=== PATIENT | male | born 1965 | race Caucasian/White ===

== ENCOUNTER 2020-07-18 11:05 | Inpatient (IN) | payer OTHER ==
[~2020-07-18] VITALS: Ht 188 cm; Wt 129.7 kg
[2020-07-18] MEDS ORDERED: SODIUM CHLORIDE 0.9% 1,000 ML IVB ONE (12:45)
[2020-07-18] MEDS ORDERED: SODIUM CHLORIDE 0.9% 1,000 ML IV ONE (12:45)
[2020-07-18] MEDS ORDERED: MECLIZINE HCL 25 MG TAB PO ONE (12:45)
[2020-07-18 14:25] LABS: Hemoglobin 7.7 g/dL (13.5-17.5); White Blood Cell 6.9 10^3/uL (4.4-10.8)
[2020-07-18 14:28] LABS: Basophils # (auto) 0.1 10 ^3/uL (0-0.2); Basophils % (auto) 1.2 % (0.0-2.0); Eosinophils # (auto) 0 10 ^3/uL (0-0.8); Eosinophils % (auto) 0.7 % (0.0-7.0); Hematocrit 23.8 % (41.0-53.0); Lymphocytes % (auto) 14.8 % (10.0-50.0); Mean Corpuscular Hemoglobin 29.4 pg (28.0-32.0); Mean Corpuscular Hgb Conc. 32.5 g/dL (32.0-36.0); Mean Corpuscular Volume 90.4 fL (80.0-100.0); Monocytes # (auto) 0.7 10 ^3/uL (0-1.3); Monocytes % (auto) 9.5 % (0.0-12.0); Neutrophils # (auto) 5.1 10 ^3/uL (1.6-8.6); Neutrophils % (auto) 73.8 % (37.0-80.0); Platelet Count (auto) 261 10^3/uL (140-450); Red Blood Cells 2.63 10^6/uL (4.5-5.90)
[2020-07-18 14:34] LABS: Albumin 2.6 g/dL (3.4-5.0); Calcium 7.9 mg/dL (8.5-10.1); Magnesium 2.1 mg/dL (1.6-2.6)
[2020-07-18 14:37] LABS: INR 1.05 (0.9-1.15); Partial Thromboplastin Time 24.8 sec (23.0-31.2)
[2020-07-18 14:52] LABS: BUN/Creatinine Ratio 43.2; Bilirubin, Total 0.3 mg/dL (0.2-1.0); Total Protein 5.3 g/dL (6.4-8.2)
[2020-07-18] MEDS ORDERED: IOPAMIDOL 76 % (ISOVUE-370) 100ML BTL IV ONE (16:52)
[2020-07-18] MEDS ORDERED: NITROGLYCERIN 0.4 MG SL TAB SL PRN (19:45)
[2020-07-18] MEDS ORDERED: MORPHINE SULF INJ 2 MG/ML SYRINGE 1ML IV PRN ×2 (19:45)
[2020-07-18] MEDS ORDERED: ONDANSETRON HCL 4 MG/2 ML VIAL IV PRN (19:45)
[2020-07-18] MEDS: SODIUM CHLORIDE 0.9% 1,000 ML IV SCH (20:10)
[2020-07-18] MEDS: SUCRALFATE 1 GM/10 ML ORAL SUSP PO SCH (21:10)
[2020-07-18] MEDS: PANTOPRAZOLE 40 MG/10 ML VIAL INJ IV SCH (21:10)
[2020-07-18 23:57] VITALS: BP 104/50
[2020-07-19] VITALS (9 sets, daily range): BP systolic 84–124; BP diastolic 41–63
[2020-07-19 00:07] LABS: Hematocrit 22.1 % (41.0-53.0)
[2020-07-19] MEDS: SODIUM CHLORIDE 0.9% 1,000 ML IV SCH ×3 (03:45→20:01)
[2020-07-19] MEDS: SUCRALFATE 1 GM/10 ML ORAL SUSP PO SCH ×4 (06:09→21:41)
[2020-07-19] MEDS: PANTOPRAZOLE 40 MG/10 ML VIAL INJ IV SCH ×2 (09:26→21:41)
[2020-07-19 11:27] LABS: Hemoglobin 7.7 g/dL (13.5-17.5)
[2020-07-19 11:29] LABS: Hematocrit 23.5 % (41.0-53.0)
[2020-07-19] MEDS: Ensure HIGH Protein Chocolate 8oz Bottle PO SCH ×2 (12:20→17:42)
[2020-07-19] MEDS ORDERED: METOCLOPRAMIDE HCL 5MG/ml INJ 2ml VIAL IV ONE (13:45)
[2020-07-19] MEDS ORDERED: LIDOCAINE VISCOUS 2% 15ML UD ONE (14:43)
[2020-07-19] MEDS ORDERED: SODIUM CHLORIDE LOCK 10 ML ONE (14:43)
[2020-07-19] MEDS ORDERED: fentaNYL CITRATE 100 MCG/2 ML VL ONE (14:44)
[2020-07-19] MEDS ORDERED: diphenhdrAMINE HCL 50 MG/1 ML VL ONE (14:44)
[2020-07-19] MEDS: MIDAZOLAM HCL 5 MG/ML-1ML VIAL ONE ×2 (14:57→15:00)
[2020-07-19 19:41] LABS: Hematocrit 23.1 % (41.0-53.0); Hemoglobin 7.6 g/dL (13.5-17.5)
[2020-07-19] MEDS ORDERED: ATORVASTATIN 20 MG TAB PO SCH (22:00)
[2020-07-20 01:45] VITALS: BP 105/56
[2020-07-20] MEDS: SODIUM CHLORIDE 0.9% 1,000 ML IV SCH ×2 (04:25→11:45)
[2020-07-20 05:34] VITALS: BP 96/73
[2020-07-20 06:33] LABS: Basophils # (auto) 0 10 ^3/uL (0-0.2); Eosinophils # (auto) 0.1 10 ^3/uL (0-0.8); Hemoglobin 8.1 g/dL (13.5-17.5); Lymphocytes # (auto) 0.9 10 ^3/uL (0.4-5.4); Mean Corpuscular Volume 89.8 fL (80.0-100.0); Monocytes # (auto) 0.6 10 ^3/uL (0-1.3); Monocytes % (auto) 12.8 % (0.0-12.0); Red Cell Distribution Width 15.1 % (11.8-14.3)
[2020-07-20 06:35] LABS: Basophils % (auto) 0.4 % (0.0-2.0); Eosinophils % (auto) 2.1 % (0.0-7.0); Hematocrit 24.7 % (41.0-53.0); Lymphocytes % (auto) 17.4 % (10.0-50.0); Mean Corpuscular Hemoglobin 29.5 pg (28.0-32.0); Mean Corpuscular Hgb Conc. 32.8 g/dL (32.0-36.0); Neutrophils # (auto) 3.3 10 ^3/uL (1.6-8.6); Neutrophils % (auto) 67.3 % (37.0-80.0); Platelet Count (auto) 236 10^3/uL (140-450); Red Blood Cells 2.75 10^6/uL (4.5-5.90); White Blood Cell 4.9 10^3/uL (4.4-10.8)
[2020-07-20] MEDS: SUCRALFATE 1 GM/10 ML ORAL SUSP PO SCH ×3 (06:42→17:10)
[2020-07-20 06:44] LABS: Calcium 7.4 mg/dL (8.5-10.1)
[2020-07-20 07:30] VITALS: BP 112/58
[2020-07-20] MEDS: Ensure HIGH Protein Chocolate 8oz Bottle PO SCH ×2 (09:09→12:00)
[2020-07-20] MEDS ORDERED: VALSARTAN 80 MG TAB PO SCH (10:00)
[2020-07-20] MEDS: PANTOPRAZOLE 40 MG/10 ML VIAL INJ IV SCH (10:44)
[2020-07-20 13:00] VITALS: BP 97/59
== END 2020-07-20 17:15 | disposition home or self-care (01) | DRG 377 ==
LOC: ER 11:05 → TELE 11:06 → TELE-CENTR 23:37
PROVIDERS: ADMIT Nurse Practitioner Acute Care; ATTEND Internal Medicine
PROC: 0DB78ZX Excision of Stomach, Pylorus, Via Natural or Artificial Opening Endoscopic, Diagnostic (ICD-10-PCS; 2020-07-19)
PROC: 30230N1 Transfusion of Nonautologous Red Blood Cells into Peripheral Vein, Open Approach (ICD-10-PCS; 2020-07-19)
PROC: 0DB68ZX Excision of Stomach, Via Natural or Artificial Opening Endoscopic, Diagnostic (ICD-10-PCS; principal; 2020-07-19 14:51)
DX: K26.0 Acute duodenal ulcer with hemorrhage (principal); R57.8 Other shock; E44.0 Moderate protein-calorie malnutrition; J98.11 Atelectasis; D50.0 Iron deficiency anemia secondary to blood loss (chronic); K57.33 Diverticulitis of large intestine without perforation or abscess with bleeding; K29.71 Gastritis, unspecified, with bleeding; K29.81 Duodenitis with bleeding; I95.9 Hypotension, unspecified; E86.1 Hypovolemia; I10 Essential (primary) hypertension; E66.9 Obesity, unspecified; Z20.822 Contact with and (suspected) exposure to COVID-19; G83.9 Paralytic syndrome, unspecified; E78.5 Hyperlipidemia, unspecified; J98.6 Disorders of diaphragm; Z68.36 Body mass index [BMI] 36.0-36.9, adult; K44.9 Diaphragmatic hernia without obstruction or gangrene
CPT/HCPCS: 36415; 71046; 74177; 80048; 80053; 82378; 83735; 84443; 84484; 85014; 85018; 85025; 85379; 85610; 85730; 86850; 86900; 86901; 86920; 87426; 93005; 96360; 96361; C9113; G0378; J2250

== ENCOUNTER 2022-05-12 13:14 | Inpatient (IN) | payer OTHER ==
[~2022-05-12] VITALS: Ht 188 cm; Wt 121.0 kg
[2022-05-12] MEDS ORDERED: IOHEXOL 350 MG/ML 100ML IJ ONE ×2 (13:41→14:19)
[2022-05-12 13:54] LABS: Basophils # (auto) 0 10 ^3/uL (0-0.2); Basophils % (auto) 0.4 % (0.0-2.0); Eosinophils # (auto) 0 10 ^3/uL (0-0.8); Eosinophils % (auto) 0.4 % (0.0-7.0); Hemoglobin 15.8 g/dL (13.5-17.5); Lymphocytes # (auto) 0.9 10 ^3/uL (0.4-5.4); Mean Corpuscular Hemoglobin 23.4 pg (28.0-32.0); Mean Corpuscular Hgb Conc. 30.4 g/dL (32.0-36.0); Mean Corpuscular Volume 77.1 fL (80.0-100.0); Monocytes # (auto) 0.8 10 ^3/uL (0-1.3); Monocytes % (auto) 13.3 % (0.0-12.0); Neutrophils # (auto) 4.4 10 ^3/uL (1.6-8.6); Neutrophils % (auto) 71.9 % (37.0-80.0); Nucleated Red Blood Cells % 0.2 %; Red Blood Cells 6.74 10^6/uL (4.5-5.90); Red Cell Distribution Width 19.7 % (11.8-14.3); White Blood Cell 6.1 10^3/uL (4.4-10.8)
[2022-05-12 14:06] LABS: Albumin 3.7 g/dL (3.4-5.0); Calcium 8.6 mg/dL (8.5-10.1); Magnesium 2.3 mg/dL (1.6-2.6)
[2022-05-12 14:09] LABS: Bilirubin, Total 0.7 mg/dL (0.2-1.0)
[2022-05-12] MEDS ORDERED: ASPirin 81 mg TAB PO ONE (14:45)
[2022-05-12] MEDS ORDERED: MORPHINE SULFATE INJ 2 MG/ml SYRG IV PRN (15:45)
[2022-05-12] MEDS ORDERED: NITROGLYCERIN 0.4 MG SL TAB SL PRN (15:45)
[2022-05-12] MEDS ORDERED: ACETAMINOPHEN 325 MG TAB PO PRN (15:45)
[2022-05-12] MEDS ORDERED: FLEET ENEMA(ADULT) 135 ML PR ONE (15:45)
[2022-05-12] MEDS ORDERED: PANTOPRAZOLE 40 MG/10 ML VIAL INJ IV ONE (15:45)
[2022-05-12] MEDS ORDERED: LACTULOSE 20Gm/30ML SOLN PO ONE (16:00)
[2022-05-12 16:38] LABS: Cholesterol 91 mg/dL (< 200)
[2022-05-12 16:41] LABS: HDL Cholesterol 45 mg/dL (40-59); LDL Cholesterol 40 mg/dL (< 100); Triglycerides 64 mg/dL (< 150)
[2022-05-12] MEDS: SODIUM CHLORIDE 0.9% 1,000 ML IV SCH (17:38)
[2022-05-12 21:28] VITALS: BP 128/83
[2022-05-12 22:00] VITALS: BP 128/81
[2022-05-12 23:28] VITALS: BP 124/78
[2022-05-13] MEDS ORDERED: VALS1TAB56 PO (04:41)
[2022-05-13] MEDS ORDERED: ATOR20TA50 PO (04:41)
[2022-05-13] MEDS ORDERED: PANT40T (04:41)
[2022-05-13 05:00] VITALS: BP 126/81
[2022-05-13] MEDS: SODIUM CHLORIDE 0.9% 1,000 ML IV SCH (06:05)
[2022-05-13 07:12] LABS: Alanine Aminotransferase 23 U/L (16-61); Albumin 2.8 g/dL (3.4-5.0); Anion Gap 4 (5-15); Aspartate Aminotransferase 12 U/L (15-37); Blood Urea Nitrogen 13 mg/dL (7-18); Calcium 6.7 mg/dL (8.5-10.1); Carbon Dioxide 31 mmol/L (21-32); Chloride 106 mmol/L (98-107); GFR African American 171 mL/min; GFR Non-African American 142 mL/min; Glucose 92 mg/dL (74-106); Potassium 4.1 mmol/L (3.5-5.1); Sodium 141 mmol/L (136-145)
[2022-05-13 07:14] LABS: Alkaline Phosphatase 80 U/L (45-117); Bilirubin, Total 0.5 mg/dL (0.2-1.0); Total Protein 5.9 g/dL (6.4-8.2)
[2022-05-13 07:27] LABS: Basophils # (auto) 0 10 ^3/uL (0-0.2); Eosinophils # (auto) 0 10 ^3/uL (0-0.8); Eosinophils % (auto) 0.2 % (0.0-7.0); Lymphocytes # (auto) 0.6 10 ^3/uL (0.4-5.4); Monocytes # (auto) 0.8 10 ^3/uL (0-1.3); Monocytes % (auto) 11.5 % (0.0-12.0); Neutrophils # (auto) 5.3 10 ^3/uL (1.6-8.6)
[2022-05-13 07:31] LABS: Basophils % (auto) 0.2 % (0.0-2.0); Hematocrit 45.4 % (41.0-53.0); Lymphocytes % (auto) 8.5 % (10.0-50.0); Mean Corpuscular Hemoglobin 24.2 pg (28.0-32.0); Mean Corpuscular Hgb Conc. 30.8 g/dL (32.0-36.0); Mean Corpuscular Volume 78.8 fL (80.0-100.0); Neutrophils % (auto) 79.6 % (37.0-80.0); Nucleated Red Blood Cells % 0.5 %; Red Blood Cells 5.76 10^6/uL (4.5-5.90); Red Cell Distribution Width 19.2 % (11.8-14.3); White Blood Cell 6.7 10^3/uL (4.4-10.8)
[2022-05-13 09:08] VITALS: BP 118/72
[2022-05-13] MEDS: PANTOPRAZOLE 40 MG/10 ML VIAL INJ IV SCH ×2 (10:06→10:30)
[2022-05-13] MEDS: ASPirin 81 mg TAB PO SCH ×2 (10:06→10:30)
[2022-05-13] MEDS: ENOXAPARIN SOD 40 MG/0.4 ML SYRINGE SC SCH ×2 (10:07→10:30)
[2022-05-13 13:00] VITALS: BP 126/73
[2022-05-13] MEDS ORDERED: FUROSEMIDE 40 MG/4 ML VIAL IV ONE (14:15)
[2022-05-13] MEDS ORDERED: AZITHROMYCIN 250 MG TAB PO ONE (14:30)
[2022-05-13] MEDS ORDERED: LISINOPRIL 10 MG TAB PO ONE (14:30)
[2022-05-13 16:32] LABS: Urine Bacteria NONE SEEN /hpf (None Seen); Urine Blood Negative /uL (Negative); Urine Mucus FEW (None Seen); Urine Specific Gravity 1.017 (1.001-1.035); Urine WBC 1 /hpf (0 - 3)
[2022-05-13 17:00] VITALS: BP 119/70
[2022-05-13] MEDS: FUROSEMIDE 20 MG/2 ML VIAL IV SCH (18:39)
[2022-05-13 20:00] VITALS: BP 122/75
[2022-05-13 22:00] VITALS: BP 122/75
[2022-05-13] MEDS: ATORVASTATIN 20 MG TAB PO SCH (22:35)
[2022-05-14 05:00] VITALS: BP 132/80
[2022-05-14] MEDS: FUROSEMIDE 20 MG/2 ML VIAL IV SCH ×2 (05:40→17:33)
[2022-05-14 06:07] LABS: Basophils # (auto) 0 10 ^3/uL (0-0.2); Eosinophils # (auto) 0 10 ^3/uL (0-0.8); Eosinophils % (auto) 0.1 % (0.0-7.0); Hemoglobin 14.4 g/dL (13.5-17.5); Monocytes # (auto) 1.1 10 ^3/uL (0-1.3)
[2022-05-14 06:12] LABS: Basophils % (auto) 0.2 % (0.0-2.0); Hematocrit 47.1 % (41.0-53.0); Lymphocytes # (auto) 0.4 10 ^3/uL (0.4-5.4); Lymphocytes % (auto) 6.5 % (10.0-50.0); Mean Corpuscular Hemoglobin 23.9 pg (28.0-32.0); Mean Corpuscular Hgb Conc. 30.6 g/dL (32.0-36.0); Monocytes % (auto) 15.4 % (0.0-12.0); Neutrophils # (auto) 5.4 10 ^3/uL (1.6-8.6); Neutrophils % (auto) 77.8 % (37.0-80.0); Nucleated Red Blood Cells % 0.1 %; Red Blood Cells 6.04 10^6/uL (4.5-5.90); Red Cell Distribution Width 19.8 % (11.8-14.3); White Blood Cell 6.9 10^3/uL (4.4-10.8)
[2022-05-14 06:46] LABS: Potassium 4.2 mmol/L (3.5-5.1)
[2022-05-14 07:02] LABS: BUN/Creatinine Ratio 19.7; Calcium 8.4 mg/dL (8.5-10.1); Magnesium 2.3 mg/dL (1.6-2.6)
[2022-05-14 09:00] VITALS: BP 130/75
[2022-05-14] MEDS: AZITHROMYCIN 250 MG TAB PO SCH (10:14)
[2022-05-14] MEDS: ASPirin 81 mg TAB PO SCH (10:14)
[2022-05-14] MEDS: PANTOPRAZOLE 40 MG/10 ML VIAL INJ IV SCH (10:14)
[2022-05-14] MEDS: ENOXAPARIN SOD 40 MG/0.4 ML SYRINGE SC SCH (10:14)
[2022-05-14] MEDS: LISINOPRIL 10 MG TAB PO SCH (10:17)
[2022-05-14] MEDS ORDERED: LACTULOSE 20Gm/30ML SOLN PO ONE (12:00)
[2022-05-14] MEDS ORDERED: DEXTROSE (50%) 50ML SYRG IV ONE (12:00)
[2022-05-14] MEDS ORDERED: methylPREDNISolone SOD SUCC 125 MG/2 ML VL IV ONE (12:00)
[2022-05-14] MEDS ORDERED: DEXTROSE (50%) 50ML SYRG IV PRN (12:45)
[2022-05-14 13:00] VITALS: BP 131/74
[2022-05-14] MEDS: ACETYLCYSTEINE 10 %(100MG/ML) SOL 4ML NEB SCH ×2 (14:00→21:43)
[2022-05-14 17:00] VITALS: BP 129/87
[2022-05-14] MEDS: ACCU-CHEK COMFORT CURVE STRIP VI SCH ×2 (17:00→21:57)
[2022-05-14] MEDS ORDERED: ACCU-CHEK COMFORT CURVE STRIP VI ONE (17:00)
[2022-05-14] MEDS: InsuLIN REG 1unit/0.01ml Soln (100units/ml) SC SCH ×2 (17:00→21:58)
[2022-05-14] MEDS ORDERED: InsuLIN REG 1unit/0.01ml Soln (100units/ml) SC ONE (17:00)
[2022-05-14] MEDS: methylPREDNISolone SOD SUCC 40 MG/ML VL IV SCH (17:34)
[2022-05-14] MEDS: ALBUTEROL MEDNEB 2.5 mg/3ml NEB NEB PRN ×2 (18:29→21:43)
[2022-05-14] MEDS: IPRATROPIUM BROM 0.5 MG/2.5ML INH SOL NEB PRN ×2 (18:30→21:43)
[2022-05-14] MEDS: ATORVASTATIN 20 MG TAB PO SCH (21:57)
[2022-05-14 22:00] VITALS: BP 118/79
[2022-05-15 05:00] VITALS: BP 113/67
[2022-05-15 06:28] LABS: Potassium 4.3 mmol/L (3.5-5.1)
[2022-05-15 06:36] LABS: BUN/Creatinine Ratio 31.7; Magnesium 2.6 mg/dL (1.6-2.6)
[2022-05-15] MEDS: ACCU-CHEK COMFORT CURVE STRIP VI SCH ×4 (06:44→21:56)
[2022-05-15] MEDS: FUROSEMIDE 20 MG/2 ML VIAL IV SCH ×2 (06:44→16:46)
[2022-05-15] MEDS: methylPREDNISolone SOD SUCC 40 MG/ML VL IV SCH ×5 (06:44→23:53)
[2022-05-15] MEDS: InsuLIN REG 1unit/0.01ml Soln (100units/ml) SC SCH ×4 (06:47→21:56)
[2022-05-15] MEDS: ALBUTEROL MEDNEB 2.5 mg/3ml NEB NEB PRN ×2 (08:19→14:46)
[2022-05-15] MEDS: ACETYLCYSTEINE 10 %(100MG/ML) SOL 4ML NEB SCH ×2 (08:20→14:46)
[2022-05-15] MEDS: PANTOPRAZOLE 40 MG/10 ML VIAL INJ IV SCH (08:56)
[2022-05-15] MEDS: AZITHROMYCIN 250 MG TAB PO SCH (08:57)
[2022-05-15] MEDS: LISINOPRIL 10 MG TAB PO SCH (08:57)
[2022-05-15] MEDS: ASPirin 81 mg TAB PO SCH (08:57)
[2022-05-15] MEDS: ENOXAPARIN SOD 40 MG/0.4 ML SYRINGE SC SCH (08:58)
[2022-05-15 09:00] VITALS: BP 118/68
[2022-05-15] MEDS: LACTULOSE 20Gm/30ML SOLN PO PRN (09:07)
[2022-05-15 13:00] VITALS: BP 120/71
[2022-05-15 17:00] VITALS: BP 113/67
[2022-05-15] MEDS: ATORVASTATIN 20 MG TAB PO SCH (21:56)
[2022-05-15 22:00] VITALS: BP 123/75
[2022-05-16] MEDS: IPRATROPIUM BROM 0.5 MG/2.5ML INH SOL NEB PRN ×2 (00:26→07:26)
[2022-05-16] MEDS: ALBUTEROL MEDNEB 2.5 mg/3ml NEB NEB PRN ×3 (00:26→22:26)
[2022-05-16] MEDS: ACETYLCYSTEINE 10 %(100MG/ML) SOL 4ML NEB SCH ×4 (00:27→22:27)
[2022-05-16 05:00] VITALS: BP 113/69
[2022-05-16] MEDS: FUROSEMIDE 20 MG/2 ML VIAL IV SCH ×2 (06:35→17:41)
[2022-05-16] MEDS: methylPREDNISolone SOD SUCC 40 MG/ML VL IV SCH ×3 (06:36→17:41)
[2022-05-16] MEDS: ACCU-CHEK COMFORT CURVE STRIP VI SCH ×4 (06:36→21:42)
[2022-05-16] MEDS: InsuLIN REG 1unit/0.01ml Soln (100units/ml) SC SCH ×4 (06:37→21:49)
[2022-05-16 09:00] VITALS: BP 114/70
[2022-05-16] MEDS: AZITHROMYCIN 250 MG TAB PO SCH (09:24)
[2022-05-16] MEDS: ASPirin 81 mg TAB PO SCH (09:24)
[2022-05-16] MEDS: PANTOPRAZOLE 40 MG/10 ML VIAL INJ IV SCH (09:25)
[2022-05-16] MEDS: LISINOPRIL 10 MG TAB PO SCH (09:25)
[2022-05-16] MEDS: ENOXAPARIN SOD 40 MG/0.4 ML SYRINGE SC SCH (09:25)
[2022-05-16] MEDS ORDERED: cefTRIAXone 1GM/50ML D5W 50 ML IV ONE (10:45)
[2022-05-16] MEDS: LACTULOSE 20Gm/30ML SOLN PO PRN (12:59)
[2022-05-16 13:00] VITALS: BP 100/57
[2022-05-16 17:00] VITALS: BP 113/68
[2022-05-16] MEDS: ATORVASTATIN 20 MG TAB PO SCH (21:42)
[2022-05-16 22:00] VITALS: BP 112/67
[2022-05-17] MEDS: methylPREDNISolone SOD SUCC 40 MG/ML VL IV SCH ×3 (00:07→22:52)
[2022-05-17 05:00] VITALS: BP 117/73
[2022-05-17 06:18] LABS: BUN/Creatinine Ratio 53.5; Calcium 9.1 mg/dL (8.5-10.1); Potassium 4.5 mmol/L (3.5-5.1)
[2022-05-17] MEDS: ACCU-CHEK COMFORT CURVE STRIP VI SCH ×4 (06:28→22:52)
[2022-05-17] MEDS: FUROSEMIDE 20 MG/2 ML VIAL IV SCH ×2 (06:28→18:23)
[2022-05-17] MEDS: InsuLIN REG 1unit/0.01ml Soln (100units/ml) SC SCH ×4 (06:29→22:00)
[2022-05-17] MEDS: ACETYLCYSTEINE 10 %(100MG/ML) SOL 4ML NEB SCH ×3 (06:48→23:39)
[2022-05-17] MEDS: ALBUTEROL MEDNEB 2.5 mg/3ml NEB NEB PRN ×3 (06:48→23:39)
[2022-05-17 08:07] LABS: Basophils # (auto) 0 10 ^3/uL (0-0.2); Basophils % (auto) 0.1 % (0.0-2.0); Eosinophils # (auto) 0 10 ^3/uL (0-0.8)
[2022-05-17 08:08] LABS: Eosinophils % (auto) 0.1 % (0.0-7.0); Hematocrit 49.3 % (41.0-53.0); Lymphocytes # (auto) 0.4 10 ^3/uL (0.4-5.4); Lymphocytes % (auto) 4.8 % (10.0-50.0); Mean Corpuscular Hemoglobin 23.3 pg (28.0-32.0); Mean Corpuscular Hgb Conc. 30.5 g/dL (32.0-36.0); Mean Corpuscular Volume 76.4 fL (80.0-100.0); Monocytes # (auto) 0.5 10 ^3/uL (0-1.3); Monocytes % (auto) 6.6 % (0.0-12.0); Neutrophils # (auto) 6.5 10 ^3/uL (1.6-8.6); Neutrophils % (auto) 88.4 % (37.0-80.0); Nucleated Red Blood Cells % 0.1 %; Red Blood Cells 6.45 10^6/uL (4.5-5.90); White Blood Cell 7.4 10^3/uL (4.4-10.8)
[2022-05-17 08:11] LABS: Red Cell Distribution Width 20.5 % (11.8-14.3)
[2022-05-17] MEDS: cefTRIAXone 1GM/50ML D5W 50 ML IV SCH (08:39)
[2022-05-17 09:00] VITALS: BP 115/73
[2022-05-17] MEDS: ASPirin 81 mg TAB PO SCH (09:44)
[2022-05-17] MEDS: LISINOPRIL 10 MG TAB PO SCH (09:44)
[2022-05-17] MEDS: AZITHROMYCIN 250 MG TAB PO SCH (09:44)
[2022-05-17] MEDS: PANTOPRAZOLE 40 MG/10 ML VIAL INJ IV SCH (09:45)
[2022-05-17] MEDS: ENOXAPARIN SOD 40 MG/0.4 ML SYRINGE SC SCH (09:45)
[2022-05-17 13:31] VITALS: BP 117/74
[2022-05-17 16:41] VITALS: BP 103/69
[2022-05-17 22:00] VITALS: BP 117/70
[2022-05-17] MEDS: ATORVASTATIN 20 MG TAB PO SCH (22:52)
[2022-05-17] MEDS: IPRATROPIUM BROM 0.5 MG/2.5ML INH SOL NEB PRN (23:40)
[2022-05-18 05:00] VITALS: BP 120/78
[2022-05-18] MEDS: ACCU-CHEK COMFORT CURVE STRIP VI SCH ×4 (06:44→22:07)
[2022-05-18] MEDS: InsuLIN REG 1unit/0.01ml Soln (100units/ml) SC SCH ×4 (06:45→22:00)
[2022-05-18] MEDS: FUROSEMIDE 20 MG/2 ML VIAL IV SCH ×2 (06:49→18:12)
[2022-05-18] MEDS: ACETYLCYSTEINE 10 %(100MG/ML) SOL 4ML NEB SCH ×3 (07:18→22:34)
[2022-05-18] MEDS: ALBUTEROL MEDNEB 2.5 mg/3ml NEB NEB PRN ×3 (07:26→22:34)
[2022-05-18 09:00] VITALS: BP 108/63
[2022-05-18] MEDS: cefTRIAXone 1GM/50ML D5W 50 ML IV SCH (10:50)
[2022-05-18] MEDS: AZITHROMYCIN 250 MG TAB PO SCH (10:51)
[2022-05-18] MEDS: PANTOPRAZOLE 40 MG/10 ML VIAL INJ IV SCH (10:51)
[2022-05-18] MEDS: ASPirin 81 mg TAB PO SCH (10:51)
[2022-05-18] MEDS: methylPREDNISolone SOD SUCC 40 MG/ML VL IV SCH ×2 (10:51→22:08)
[2022-05-18] MEDS: LISINOPRIL 10 MG TAB PO SCH (10:52)
[2022-05-18] MEDS: ENOXAPARIN SOD 40 MG/0.4 ML SYRINGE SC SCH (10:53)
[2022-05-18 17:00] VITALS: BP 99/55
[2022-05-18 21:56] VITALS: BP 107/69
[2022-05-18] MEDS: ATORVASTATIN 20 MG TAB PO SCH (22:07)
[2022-05-19 05:00] VITALS: BP 99/64
[2022-05-19] MEDS: FUROSEMIDE 20 MG/2 ML VIAL IV SCH (06:00)
[2022-05-19 06:27] LABS: Potassium 5.2 mmol/L (3.5-5.1)
[2022-05-19 06:34] LABS: Albumin 3.3 g/dL (3.4-5.0); BUN/Creatinine Ratio 56.1; Bilirubin, Total 1.2 mg/dL (0.2-1.0); Calcium 8.3 mg/dL (8.5-10.1); Total Protein 6.2 g/dL (6.4-8.2)
[2022-05-19] MEDS: InsuLIN REG 1unit/0.01ml Soln (100units/ml) SC SCH ×5 (06:42→21:53)
[2022-05-19] MEDS: ACCU-CHEK COMFORT CURVE STRIP VI SCH ×4 (06:42→21:44)
[2022-05-19] MEDS: IPRATROPIUM BROM 0.5 MG/2.5ML INH SOL NEB PRN ×2 (06:50→15:16)
[2022-05-19] MEDS: ALBUTEROL MEDNEB 2.5 mg/3ml NEB NEB PRN ×3 (06:50→22:12)
[2022-05-19] MEDS: ACETYLCYSTEINE 10 %(100MG/ML) SOL 4ML NEB SCH ×3 (06:51→22:13)
[2022-05-19 09:00] VITALS: BP 111/73
[2022-05-19] MEDS: ASPirin 81 mg TAB PO SCH (09:05)
[2022-05-19] MEDS: methylPREDNISolone SOD SUCC 40 MG/ML VL IV SCH ×2 (09:06→21:43)
[2022-05-19] MEDS: cefTRIAXone 1GM/50ML D5W 50 ML IV SCH (09:06)
[2022-05-19] MEDS: LISINOPRIL 10 MG TAB PO SCH (09:06)
[2022-05-19] MEDS: ENOXAPARIN SOD 40 MG/0.4 ML SYRINGE SC SCH (09:06)
[2022-05-19] MEDS: PANTOPRAZOLE 40 MG TAB PO SCH (09:06)
[2022-05-19 09:08] VITALS: BP 99/64
[2022-05-19] MEDS ORDERED: SODIUM ZIRCONIUM CYCL 10 GM PAK PO ONE (09:15)
[2022-05-19] MEDS ORDERED: EMPA1TAB PO (11:29)
[2022-05-19] MEDS ORDERED: CEFD300C2 PO (11:29)
[2022-05-19] MEDS ORDERED: ALBUAER3 IN (11:29)
[2022-05-19] MEDS ORDERED: BLOO1KIT60 XX (11:29)
[2022-05-19] MEDS ORDERED: PRED20TA2 PO (11:29)
[2022-05-19] MEDS ORDERED: FURO1TAB33 PO (11:29)
[2022-05-19] MEDS ORDERED: LANC-347 XX (11:29)
[2022-05-19] MEDS ORDERED: ASPI-325 PO (11:29)
[2022-05-19] MEDS ORDERED: LISI-716 PO (11:29)
[2022-05-19] MEDS ORDERED: LISI-275 PO (11:35)
[2022-05-19 13:00] VITALS: BP 112/71
[2022-05-19 16:55] VITALS: BP 108/71
[2022-05-19] MEDS: ATORVASTATIN 20 MG TAB PO SCH (21:43)
[2022-05-19 23:20] VITALS: BP 122/80
[2022-05-20 05:00] VITALS: BP 120/80
[2022-05-20] MEDS: ACETYLCYSTEINE 10 %(100MG/ML) SOL 4ML NEB SCH (06:46)
[2022-05-20] MEDS: ALBUTEROL MEDNEB 2.5 mg/3ml NEB NEB PRN (06:46)
[2022-05-20] MEDS: InsuLIN REG 1unit/0.01ml Soln (100units/ml) SC SCH (06:48)
[2022-05-20] MEDS: ACCU-CHEK COMFORT CURVE STRIP VI SCH (06:48)
[2022-05-20 08:00] VITALS: BP 131/52
[2022-05-20 08:30] VITALS: BP 124/66
[2022-05-20] MEDS: PANTOPRAZOLE 40 MG TAB PO SCH (09:17)
[2022-05-20] MEDS: LISINOPRIL 10 MG TAB PO SCH (09:17)
[2022-05-20] MEDS: ASPirin 81 mg TAB PO SCH (09:17)
[2022-05-20] MEDS: cefTRIAXone 1GM/50ML D5W 50 ML IV SCH (09:17)
[2022-05-20] MEDS: methylPREDNISolone SOD SUCC 40 MG/ML VL IV SCH (09:17)
[2022-05-20] MEDS: ENOXAPARIN SOD 40 MG/0.4 ML SYRINGE SC SCH (09:18)
[2022-05-20] MEDS ORDERED: InsuLIN REG 1unit/0.01ml Soln (100units/ml) SC SCH ×2 (11:30→22:00)
[2022-05-20] MEDS ORDERED: ACCU-CHEK COMFORT CURVE STRIP VI SCH (11:30)
[2022-05-20 11:32] LABS: BUN/Creatinine Ratio 44.3; Calcium 8.5 mg/dL (8.5-10.1)
[2022-05-20 13:27] LABS: Potassium 4.6 mmol/L (3.5-5.1)
== END 2022-05-20 13:10 | disposition home or self-care (01) | DRG 177 ==
LOC: ER 13:14 → OVERFLOW 15:46 → EAST 19:35
PROVIDERS: ADMIT Nurse Practitioner Family; ATTEND Internal Medicine
PROC: 5A09357 Assistance with Respiratory Ventilation, Less than 24 Consecutive Hours, Continuous Positive Airway Pressure (ICD-10-PCS; principal; 2022-05-16)
PROC: 5A09357 Assistance with Respiratory Ventilation, Less than 24 Consecutive Hours, Continuous Positive Airway Pressure (ICD-10-PCS; 2022-05-17)
PROC: 5A09357 Assistance with Respiratory Ventilation, Less than 24 Consecutive Hours, Continuous Positive Airway Pressure (ICD-10-PCS; 2022-05-18)
PROC: 5A09357 Assistance with Respiratory Ventilation, Less than 24 Consecutive Hours, Continuous Positive Airway Pressure (ICD-10-PCS; 2022-05-19)
DX: J15.6 Pneumonia due to other Gram-negative bacteria (principal); I50.33 Acute on chronic diastolic (congestive) heart failure; J96.01 Acute respiratory failure with hypoxia; J44.0 Chronic obstructive pulmonary disease with (acute) lower respiratory infection; J44.1 Chronic obstructive pulmonary disease with (acute) exacerbation; I11.0 Hypertensive heart disease with heart failure; E78.5 Hyperlipidemia, unspecified; E11.9 Type 2 diabetes mellitus without complications; E66.01 Morbid (severe) obesity due to excess calories; K59.00 Constipation, unspecified; E86.0 Dehydration; Z20.822 Contact with and (suspected) exposure to COVID-19; T50.1X5A Adverse effect of loop [high-ceiling] diuretics, initial encounter; Y92.89 Other specified places as the place of occurrence of the external cause; Z80.3 Family history of malignant neoplasm of breast; Z82.49 Family history of ischemic heart disease and other diseases of the circulatory system; Z86.711 Personal history of pulmonary embolism; Z87.891 Personal history of nicotine dependence; Z71.3 Dietary counseling and surveillance; Z68.35 Body mass index [BMI] 35.0-35.9, adult
CPT/HCPCS: 36415; 36600; 71045; 71046; 71275; 74018; 80048; 80053; 80061; 81001; 82043; 82306; 82805; 82962; 83036; 83605; 83735; 83880; 84443; 84484; 85025; 85379; 87040; 87426; 87804; 93005; 93306; 93970; 94640; 94660; 96361; 96374; 99291; C9113; G0378; J0696; J1815

== ENCOUNTER → 2022-08-26 | Outpatient (CLI) | payer OTHER ==
[~2022-08-26] MED LIST: ALBUAER3 IN; ASPI-325 PO; ATOR20TA50 PO; BLOO1KIT60 XX; CEFD300C2 PO; EMPA1TAB PO; FURO1TAB33 PO; LANC-347 XX; LISI-275 PO; PRED20TA2 PO
== END | disposition home or self-care (01) ==
LOC: RT 09:38
PROVIDERS: ATTEND Internal Medicine Pulmonary Disease
DX: R06.02 Shortness of breath (principal); F17.210 Nicotine dependence, cigarettes, uncomplicated
CPT/HCPCS: 94060; 94727; 94729

== ENCOUNTER 2023-02-27 15:00 | Outpatient (CLI) | payer OTHER | END 2023-02-27 15:03 | disposition home or self-care (01) | LOC: XYW 15:00 | PROVIDERS: ATTEND Nurse Practitioner Family | DX: I10 Essential (primary) hypertension (principal) | CPT/HCPCS: 93306 ==

== ENCOUNTER → 2023-10-16 | Outpatient (CLI) | payer OTHER ==
[2023-10-16 08:16] LABS: Basophils # (auto) 0 10 ^3/uL (0-0.2); Basophils % (auto) 0.1 % (0.0-2.0); Eosinophils # (auto) 0.1 10 ^3/uL (0-0.8); Hematocrit 50.4 % (41.0-53.0); Hemoglobin 16.8 g/dL (13.5-17.5); Lymphocytes # (auto) 0.8 10 ^3/uL (0.4-5.4); Lymphocytes % (auto) 15.6 % (10.0-50.0); Mean Corpuscular Hemoglobin 30.6 pg (28.0-32.0); Mean Corpuscular Hgb Conc. 33.3 g/dL (32.0-36.0); Mean Corpuscular Volume 91.9 fL (80.0-100.0); Monocytes # (auto) 0.6 10 ^3/uL (0-1.3); Monocytes % (auto) 11.1 % (0.0-12.0); Neutrophils # (auto) 3.9 10 ^3/uL (1.6-8.6); Neutrophils % (auto) 72.2 % (37.0-80.0); Nucleated Red Blood Cells % 0.1 %; Red Blood Cells 5.49 10^6/uL (4.5-5.90); Red Cell Distribution Width 13.7 % (11.8-14.3); White Blood Cell 5.4 10^3/uL (4.4-10.8)
[2023-10-16 09:04] LABS: Alanine Aminotransferase 21 U/L (7-40); Albumin 4.6 g/dL (3.2-4.8); Alkaline Phosphatase 99 U/L (46-116); Anion Gap 1 (5-15); Aspartate Aminotransferase 14 U/L (13-40); BUN/Creatinine Ratio 13.8 (10.0-20.0); Blood Urea Nitrogen 12 mg/dL (9-23); Calcium 9.7 mg/dL (8.5-10.1); Carbon Dioxide 34 mmol/L (20-30); Chloride 103 mmol/L (98-107); Glucose 91 mg/dL (74-106); LDL Cholesterol 56 mg/dL (< 100); Potassium 4.4 mmol/L (3.5-5.1); Sodium 138 mmol/L (136-145); Triglycerides 68 mg/dL (< 150)
[2023-10-16 09:05] LABS: Bilirubin, Total 0.8 mg/dL (0.2-1.0); Cholesterol 120 mg/dL (< 200); HDL Cholesterol 46 mg/dL (40-59); Total Protein 7.3 g/dL (5.7-8.2)
[2023-10-16 10:39] LABS: Prostate Specific Antigen 1.36 ng/mL (0.0-4.0)
[2023-10-16 10:47] LABS: Free T4 (Free Thyroxine) 1.01 ng/dL (0.89-1.76)
== END | disposition home or self-care (01) ==
LOC: LAB 07:56
PROVIDERS: ATTEND Nurse Practitioner Family
DX: E11.65 Type 2 diabetes mellitus with hyperglycemia (principal); R35.1 Nocturia; I10 Essential (primary) hypertension
CPT/HCPCS: 36415; 80053; 80061; 82043; 83036; 84153; 84439; 84443; 85025

== ENCOUNTER → 2024-10-04 | Outpatient (CLI) | payer OTHER ==
[2024-10-04 07:40] LABS: Basophils # (auto) 0 10 ^3/uL (0-0.2); Basophils % (auto) 0.6 % (0.0-2.0); Eosinophils # (auto) 0.1 10 ^3/uL (0-0.8); Eosinophils % (auto) 1.7 % (0.0-7.0); Hematocrit 49.8 % (41.0-53.0); Hemoglobin 17.1 g/dL (13.5-17.5); Lymphocytes # (auto) 0.9 10 ^3/uL (0.4-5.4); Lymphocytes % (auto) 23.7 % (10.0-50.0); Mean Corpuscular Hemoglobin 31.4 pg (28.0-32.0); Mean Corpuscular Hgb Conc. 34.3 g/dL (32.0-36.0); Mean Corpuscular Volume 91.4 fL (80.0-100.0); Monocytes # (auto) 0.5 10 ^3/uL (0-1.3); Monocytes % (auto) 12.6 % (0.0-12.0); Neutrophils # (auto) 2.4 10 ^3/uL (1.6-8.6); Neutrophils % (auto) 61.4 % (37.0-80.0); Platelet Count (auto) 252 10^3/uL (140-450); Red Blood Cells 5.46 10^6/uL (4.5-5.90); Red Cell Distribution Width 13.5 % (11.8-14.3)
[2024-10-04 08:22] LABS: Creatinine, Urine 107.45 mg/dL (30.0-125.0)
[2024-10-04 08:24] LABS: Alanine Aminotransferase 30 U/L (7-40); Albumin 4.7 g/dL (3.2-4.8); Alkaline Phosphatase 78 U/L (46-116); Anion Gap 8 (5-15); Aspartate Aminotransferase 19 U/L (13-40); BUN/Creatinine Ratio 18.9 (10.0-20.0); Blood Urea Nitrogen 18 mg/dL (9-23); Calcium 9.8 mg/dL (8.7-10.4); Carbon Dioxide 31 mmol/L (20-31); Chloride 101 mmol/L (98-107); Glucose 101 mg/dL (74-106); LDL Cholesterol 54 mg/dL (< 100); Potassium 4.4 mmol/L (3.5-5.1); Sodium 140 mmol/L (136-145); Total Protein 7.2 g/dL (5.7-8.2); Triglycerides 80 mg/dL (< 150)
[2024-10-04 08:25] LABS: Bilirubin, Total 0.7 mg/dL (0.2-1.0); Cholesterol 123 mg/dL (< 200); HDL Cholesterol 51 mg/dL (40-59)
[2024-10-04 08:27] LABS: Microalb/Creat Ratio, Urine < 3.0
== END | disposition home or self-care (01) ==
LOC: LAB 06:59
PROVIDERS: ATTEND Nurse Practitioner Family
DX: I10 Essential (primary) hypertension (principal); E11.65 Type 2 diabetes mellitus with hyperglycemia; R35.1 Nocturia; Z00.01 Encounter for general adult medical examination with abnormal findings
CPT/HCPCS: 36415; 80053; 80061; 82043; 82570; 83036; 84153; 84443; 85025